=== PATIENT | male | born 1970 | race Caucasian/White ===

== ENCOUNTER 2017-10-22 19:20 | Emergency (ER) | payer OTHER ==
[~2017-10-22] VITALS: Ht 185.4 cm; Wt 103.2 kg
[~2017-10-22 19:20] MED LIST: LISI-167 PO
[2017-10-22 19:22] VITALS: BP 189/103
[2017-10-22] MEDS ORDERED: BUPIVACAINE 0.25% ONE (19:59)
[2017-10-22] MEDS ORDERED: LIDOCAINE-MPF 1%, 5ML ONE (19:59)
[2017-10-22] MEDS ORDERED: LIDOCAINE-MPF 2% ,5ML ONE (20:00)
[2017-10-22] MEDS ORDERED: BUPIVACAINE/PF-EPI 0.25% 1:200K SQ ONE (20:00)
[2017-10-22] MEDS ORDERED: LIDOCAINE 2%, 20ML SQ ONE (20:00)
== END 2017-10-22 20:18 | disposition home or self-care (01) ==
LOC: ED 20:15
DX: K04.7 Periapical abscess without sinus (principal); K02.9 Dental caries, unspecified; I10 Essential (primary) hypertension
CPT/HCPCS: 64400; 99284

== ENCOUNTER 2018-04-02 13:50 | Emergency (ER) | payer OTHER ==
[~2018-04-02] VITALS: Ht 185.4 cm; Wt 102.9 kg
[2018-04-02 14:32] LABS: BASOPHILS # (AUTO) 0.05 x10^3/uL (0-0.1); BASOPHILS % (AUTO) 1 % (0-1); EOSINOPHILS # (AUTO) 0.21 x10^3/uL (0-0.4); EOSINOPHILS % (AUTO) 3 % (1-7); LYMPHOCYTES # (AUTO) 3.26 x10^3/uL (1-3.4); LYMPHOCYTES % (AUTO) 40 % (22-44); MD NO; MEAN CORPUSCULAR HEMOGLOBIN 30.6 pg (27.5-34.5); MEAN CORPUSCULAR HGB CONC 34.4 g/dL (33.2-36.2); MEAN CORPUSCULAR VOLUME 89.1 fL (81-97); MEAN PLATELET VOLUME 8.6 fL (7.4-10.4); MONOCYTES % (AUTO) 5 % (2-9); NEUTROPHILS % (AUTO) 52 % (42-75); PLATELET COUNT 226 x10^3/uL (130-400); RED BLOOD COUNT 5.46 x10^6/uL (4.38-5.82); RED CELL DISTRIBUTION WIDTH 13.1 % (9.4-14.8)
[2018-04-02 14:41] LABS: ANION GAP 6 mmol/L (5-15); CALCIUM 9.3 mg/dL (8.5-10.1); CHLORIDE 107 mmol/L (98-107)
[2018-04-02 14:42] LABS: ALANINE AMINOTRANSFERASE 42 U/L (12-78); ALBUMIN 4.3 g/dL (3.4-5.0); CREATININE 1.03 mg/dL (0.7-1.3)
[2018-04-02] MEDS ORDERED: LORazepam 1MG TABLET ONE (14:43)
[2018-04-02 14:44] LABS: ALKALINE PHOSPHATASE 76 U/L (45-117); BILIRUBIN,TOTAL 0.5 mg/dL (0.2-1.0); TOTAL PROTEIN 7.8 g/dL (6.4-8.2)
[2018-04-02] MEDS ORDERED: LORazepam 1MG TABLET PO ONE (15:00)
[2018-04-02 16:11] VITALS: BP 151/95
[2018-04-02 16:23] LABS: MICROSCOPIC NOT IND
[2018-04-02 16:28] LABS: CULTURE INDICATED? NO
== END 2018-04-02 16:50 | disposition home or self-care (01) ==
LOC: ED 16:30
DX: R47.9 Unspecified speech disturbances (principal); I10 Essential (primary) hypertension
CPT/HCPCS: 36415; 70450; 71046; 74021; 80053; 81003; 85025; 93005; 99284